=== PATIENT | male | born 1955 | race Two or more races ===

== ENCOUNTER → 2021-06-06 | Outpatient (CLI) | payer BC ==
[~2021-06-06] MED LIST: ? CHOLESTEROL MED; ASPI325 PO; ASPI81CH PO; CLOP75 PO; ERGO400 PO; HYDGUAL120 PO; HYDMOR2 PO; Humalog100 UNIT/1; LEVFLO500 PO; LISI20 PO; TOUJEO SOL300 UNIT/1; VYTORIN
[2021-06-08 15:18] LABS: CORONAVIRUS (COVID19) CSH-NRL Negative (Negative)
== END ==
LOC: LAB SHORT 12:18 → LAB 12:18
PROVIDERS: Physician Assistant
DX: Z20.822 Contact with and (suspected) exposure to COVID-19 (principal)
CPT/HCPCS: U0003

== ENCOUNTER → 2023-09-01 | Outpatient (CLI) | payer BC ==
[2023-09-01 10:57] LABS: BASOPHILS ABSOLUTE AUTO 0.07 K/mm3 (0.00-0.23); BASOPHILS PERCENT AUTO 1 % (0-2); EOSINOPHILS ABSOLUTE AUTO 0.25 K/mm3 (0.00-0.68); EOSINOPHILS PERCENT AUTO 2 % (0-6); Hematocrit 49.3 % (37.0-53.0); IMMATURE GRAN ABSOLUTE AUTO 0.03 K/mm3 (0.00-0.10); IMMATURE GRAN PERCENT AUTO 0 % (0-1); LYMPHOCYTES ABSOLUTE AUTO 1.01 K/mm3 (0.84-5.20); LYMPHOCYTES PERCENT AUTO 10 % (21-46); MONOCYTES ABSOLUTE AUTO 1.03 K/mm3 (0.16-1.47); MONOCYTES PERCENT AUTO 10 % (4-13); Mean Corpuscular HGB 29.7 pg (26.0-34.0); Mean Corpuscular HGB Conc 32.5 g/dL (31.5-36.5); Mean Corpuscular Volume 92 fL (80-100); Mean Platelet Volume 9.2 fL (9.1-12.4); NEUTROPHILS ABSOLUTE AUTO 7.89 K/mm3 (1.96-9.15); NEUTROPHILS PERCENT AUTO 77 % (41-73); Platelet Count 365 K/mm3 (150-400); RDW Coefficient Variation 12.2 % (11.7-14.2); RDW Standard Deviation 40.1 fL (35.1-46.3); Red Blood Cell Count 5.38 M/mm3 (4.30-5.90); White Blood Cell Count 10.28 K/mm3 (4.00-11.30)
[2023-09-01 11:16] LABS: Albumin/Globulin Ratio 0.7 (0.8-1.8); Bilirubin, Total 0.6 mg/dL (0.1-1.0); Bun/Creatinine Ratio 16.5 (12.0-20.0); Creatinine, Blood 1.27 mg/dL (0.60-1.20); Globulin, Blood 4.2 g/dL (2.2-4.0); Potassium, Blood 4.2 mmol/L (3.5-5.5); Total Protein, Blood 7.2 g/dL (6.4-8.2)
== END | disposition home or self-care (01) ==
LOC: LAB 10:53 → LAB SHORT 10:53
PROVIDERS: Physician Assistant
DX: R11.2 Nausea with vomiting, unspecified (principal)
CPT/HCPCS: 80053; 85025

== ENCOUNTER 2024-04-12 09:42 | Emergency (ER) | payer BC ==
[~2024-04-12] VITALS: Ht 180.3 cm; Wt 88.9 kg
[~2024-04-12 09:42] MED LIST changes: +INSULIN LI100 UNIT/6 SC; +LISI5 PO; -TOUJEO SOL300 UNIT/1; +TOUJEO SOL300 UNIT/2 SC
[2024-04-12 10:22] VITALS: BP 169/102
[2024-04-12] MEDS ORDERED: Gabapentin 300 MG Cap PO ONE (10:45)
[2024-04-12] MEDS ORDERED: Ketorolac Tromethamine 15mg Vial IM ONE (10:45)
[2024-04-12] MEDS ORDERED: Acetaminophen 500 MG Tab PO ONE (10:45)
[2024-04-12] MEDS ORDERED: IBUP600 PO (10:55)
[2024-04-12] MEDS ORDERED: GABA300 PO (10:55)
[2024-04-12] MEDS ORDERED: ACET500 PO (10:55)
== END 2024-04-12 11:05 | disposition home or self-care (01) ==
LOC: ER 09:42
DX: M54.12 Radiculopathy, cervical region (principal); E11.9 Type 2 diabetes mellitus without complications; I10 Essential (primary) hypertension; Z79.82 Long term (current) use of aspirin; Z79.4 Long term (current) use of insulin
CPT/HCPCS: A9270; J1885

== ENCOUNTER 2024-08-26 08:30 | Observation (INO) | payer BC, MEDICARE ==
[~2024-08-26] VITALS: Ht 177.8 cm; Wt 79.4 kg
[2024-08-26] VITALS (41 sets, daily range): BP systolic 116–180; BP diastolic 70–112
[~2024-08-26 08:30] MED LIST changes: +ACET500 PO; +GABA300 PO; +IBUP600 PO
[2024-08-26] MEDS ORDERED: Clopidogrel Bisulfate 300 MG Cap PO ONE (08:45)
[2024-08-26] MEDS ORDERED: Aspirin 325 MG Tab PO ONE (08:50)
[2024-08-26] MEDS ORDERED: Morphine Sulfate 4 MG/1 ML Injection IV ONE (08:55)
[2024-08-26] MEDS ORDERED: Nitroglycerin/D5W 250 ML IV ONE (08:55)
[2024-08-26] MEDS ORDERED: Heparin Sodium 1000 Units/ML 10ML MDV ONE ×2 (08:56→09:09)
[2024-08-26] MEDS ORDERED: Verapamil HCL 2.5 MG/ML 2ML Injection ONE (08:56)
[2024-08-26] MEDS ORDERED: NS 250 ML IV ONE (08:56)
[2024-08-26] MEDS ORDERED: NS 1,000 ML IV ONE ×3 (08:57→11:10)
[2024-08-26] MEDS ORDERED: Nitroglycerin 2 MG/20 ML BTL ONE (08:57)
[2024-08-26 09:08] LABS: BASOPHILS ABSOLUTE AUTO 0.09 K/mm3 (0.00-0.23); BASOPHILS PERCENT AUTO 1 % (0-2); EOSINOPHILS ABSOLUTE AUTO 0.25 K/mm3 (0.00-0.68); EOSINOPHILS PERCENT AUTO 2 % (0-6); Hematocrit 49.5 % (37.0-53.0); Hemoglobin 17.1 g/dL (13.5-17.5); IMMATURE GRAN ABSOLUTE AUTO 0.07 K/mm3 (0.00-0.10); IMMATURE GRAN PERCENT AUTO 1 % (0-1); LYMPHOCYTES PERCENT AUTO 24 % (21-46); MONOCYTES ABSOLUTE AUTO 1.11 K/mm3 (0.16-1.47); MONOCYTES PERCENT AUTO 9 % (4-13); Mean Corpuscular HGB 31.1 pg (26.0-34.0); Mean Corpuscular HGB Conc 34.5 g/dL (31.5-36.5); Mean Corpuscular Volume 90 fL (80-100); Mean Platelet Volume 9.2 fL (9.1-12.4); NEUTROPHILS ABSOLUTE AUTO 8.39 K/mm3 (1.96-9.15); NEUTROPHILS PERCENT AUTO 64 % (41-73); Platelet Count 381 K/mm3 (150-400); RDW Coefficient Variation 11.8 % (11.7-14.2); RDW Standard Deviation 38.8 fL (35.1-46.3); White Blood Cell Count 13.11 K/mm3 (4.00-11.30)
[2024-08-26] MEDS ORDERED: Midazolam HCl 1MG / ML 2ML Vial ONE (09:08)
[2024-08-26] MEDS ORDERED: FentaNYL Citrate 50 MCG/ML 2 ML Injection ONE ×2 (09:09→10:14)
[2024-08-26 09:29] LABS: Alanine Aminotransfer (ALT/SGP 46 U/L (12-78); Albumin, Blood 3.6 g/dL (3.4-5.0); Alk Phos 82 U/L (50-136); Anion Gap 16 mmol/L (3-11); Aspartate Aminotrans (AST/SGOT 34 U/L (12-37); Bilirubin, Total 0.6 mg/dL (0.1-1.0); Blood Urea Nitrogen 33 mg/dL (8-24); Bun/Creatinine Ratio 30.8 (12.0-20.0); CHOL/HDL RATIO 3.3; CO2, Blood 24 mmol/L (21-32); Calcium, Blood 9.4 mg/dL (8.5-10.1); Chloride, Blood 103 mmol/L (98-108); Cholesterol 193 mg/dL (50-200); Creatinine, Blood 1.07 mg/dL (0.60-1.20); Globulin, Blood 3.5 g/dL (2.2-4.0); Glomerular Filtration Rate 76 (60-); Glucose, Blood 187 mg/dL (70-99); HDL Cholesterol 59 mg/dL (>39); LDL/HDL RATIO 1.9; Low Density Lipoprotein Chol 111 mg/dL (0-110); Magnesium, Blood 2.1 mg/dL (1.6-2.4); Potassium, Blood 4.4 mmol/L (3.5-5.5); Sodium, Blood 139 mmol/L (136-145); Total Protein, Blood 7.1 g/dL (6.4-8.2); Triglycerides 117 mg/dL (30-160); Very Low Density Lipoprot Chol 23 mg/dL (6-32)
[2024-08-26] MEDS ORDERED: FLU VACC TS2024-25(6MOS UP)/PF 45 MCG/0.5 ML SYRINGE IM SCH (09:30)
[2024-08-26] MEDS ORDERED: Tirofiban HCL Monohydrate 3.75 MG/15 ML Vial ONE (09:30)
[2024-08-26] MEDS ORDERED: Tirofiban HCL M-Hyd/NS 250 ML IV ONE (09:31)
[2024-08-26 09:50] LABS: Anti-Xa UFH, PHA Monitoring <0.10 IU/mL; International Normalized Ratio 0.93
--- NOTE | 2024-08-26 10:31 | NUR ---
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 Addressed immediate family. Family displayed evidence of stress in the form of tears. Offered compassionate listening. Family requested prayer. Prayed with family. Family thanked me for visit and expressed relief following prayer.
--- NOTE | 2024-08-26 10:37 | NUR ---
Was called to Wafer Abrading Machine Tender waiting room. Family have gathered for a pt. who had a heart attack and was having emergency surgery. Spouse displays evidence of tears, and verbalized that another lacquer shader had visited. Facilitated life review. Since other family were now present this lacquer shader gathered them together and prayed for the family and Pt. Spouse verbalized gratitude for the praywer and spiritual care visit. Will reamin available to the Pt. and family.
--- NOTE | 2024-08-26 10:42 | NUR ---
ARRIVAL TO ICU 11 PT BROUGHT TO ICU 11 AT THIS TIME. R TR BAND SITE WNL. SINUS ON MONITOR WITH RATE IN 70S, BP STABLE. PT C/O L ARM PAIN RELATED TO RECENT NECK SURGERY. HE DENIES ANY CP OR SOB AT THIS TIME. PT ANSWERS ADMISSION QUESTIONS. AT BEDSIDE.
[2024-08-26] MEDS ORDERED: Tirofiban HCL M-Hyd/NS 250 ML IV SCH (11:00)
[2024-08-26] MEDS ORDERED: TraMADol HCl 50 MG Tab PO PRN (11:55)
[2024-08-26] MEDS ORDERED: Acetaminophen 325 MG TABLET PO PRN (11:55)
[2024-08-26] MEDS ORDERED: FentaNYL Citrate 50 MCG/ML 2 ML Injection IV ONE (13:40)
[2024-08-26] MEDS ORDERED: HYDROcodone 5-APAP 325 TAB PO PRN (13:45)
[2024-08-26] MEDS ORDERED: Nitroglycerin 0.4 MG SUBL SL ONE (15:43)
[2024-08-26] MEDS ORDERED: Aspirin 81 MG Chew PO ONE (15:43)
[2024-08-26] MEDS ORDERED: Heparin Sodium,Porcine 5,000 UNIT/0.5 ML SDV SC ONE (15:43)
[2024-08-26] MEDS ORDERED: DULoxetine HCL 20 MG Cap DR PO SCH (16:00)
[2024-08-26] MEDS ORDERED: Insulin Human Lispro 100 Units/ML 3ML Syringe SC SCH (16:30)
[2024-08-26] MEDS ORDERED: Carvedilol 6.25 MG Tab PO SCH (17:00)
--- NOTE | 2024-08-26 17:54 | NUR ---
1570-CALL TO FOR CLARIFICATION REGARDING MEDICATION ADMINISTRATION. WAS NOT WANTING PT TO TAKE THE CYMBALTA, ASKED IF THE PATIENT COULD TAKE THE PREDNISONE THAT HE HAD BEEN TAKING, SAID YES. PT INFORMED OF WHAT HAD SAID, REASONS FOR MEDICATION BEING THE NEUROPATHY OF THE SHOULDER, CONTINUED TO STATE THE PATIENT DOES NOT HAVE NEUROPATHY. PT STATES I HAVE THAT NERVE PAIN IN MY SHOULDER, ATTEMPT TO EDUCATE THE REGARDING THE DEFINITION OF NERVE PAIN AND INDICATION FOR MEDICATION. PT STATED HE WAS HAPPY TO TAKE THE MEDS BUT WANTED TO WAIT TO TAKE HIS PREDNISONE UNTIL TOMORROW.
--- NOTE | 2024-08-26 18:33 | NUR ---
Pt. is awake and eating dinner when he welcomes my visit. Spouse is at bedside and also welcomed my visit. Facilitated an update with the goal of establishing rapport with the Pt. Considered matters of his health history and normalized the Pt. experience.Rapport is established and the Pt. welcomed this brokerage branch manager to return.
[2024-08-26] MEDS ORDERED: Insulin Human Lispro 100 Units/ML 3ML Syringe SC ONE ×2 (18:45→20:15)
--- NOTE | 2024-08-26 18:51 | NUR ---
SHIFT SUMMARY TR BAND REMOVED AT 1600. TEGADERM AND ARMBOARD IN PLACE. PT CONTINUES TO DENY CP. SINUS ON MONITOR WITH RATE IN 80S. BP STABLE WITH SBP 120S-140S. PT CONTINUES TO HAVE L SHOULDER/ARM PAIN THAT IS RELATED TO RECENT NECK SURGERY. MEDICATED PER EMAR. PT C/O FEELING INCREASED WORK OF BREATHING. RR 17-24, SPO2 >93%. PLACED ON 2L NC FOR COMFORT. PT TOLERATED DINNER AND FLUIDS WELL. PT ABLE TO VOID APPROX 1000ML. BED IN LOW POSITION, CALL LIGHT WITHIN REACH. AT BEDSIDE. PT EXPRESSED FEELING HYPERGLYCEMIC AND CHECKED PERSONAL DEXCOM WITH VALUE >380. CHECKED GLUCOSE WITH HOSPITAL GLUCOMETER WITH RESULT 368. PT'S STS THEY WANT TO USE THEIR OWN INSULIN AND THAT HE NORMALLY USES CARB COUNT FOR INSULIN DOSING. HOSPITALIST NOTIFIED, ORDER RECIEVED FOR 4UNITS HUMALOG NOW, RECHECK GLUCOSE IN 1 HR, IF >250, ADMINISTER ADDITIONAL 4UNITS HUMALOG. PT AGREEABLE TO PLAN.
[2024-08-26] MEDS ORDERED: Insulin Glargine-Yfgn 100 Unit/mL 3 ML SYR SC SCH (21:00)
--- NOTE | 2024-08-26 22:00 | NUR ---
ASSUMED CARE AT 1900 PT LAYING IN BED WITH AT BEDSIDE. HE IS A/O X4 AND ABLE TO MAKE HIS NEEDS KNOWN. SPO2 >95% ON 2L NC; NO C/O SOB. AFEBRILE. NSR NOTED WITH RATE 80'S. SBP 140'S. RT RADIAL SITE FROM PREVIOUS TR BAND SHOWS NO SIGNS OF BLEEDING OR HEMATOMA; PT COMPLIENT WITH LIMITING MOBILITY TO RT HAND; DRESSING C/D/I. HE IS ABLE TO AMBULATE TO BATHROOM WITH MINIMAL ASSISTANCE, MOSTLY FOR LINE MANAGMENT; PT ASSISTING AT TIMES. SALINE LOCKED. SEE SHIFT ASSESSMENT FOR FULL ASSESSMENT.
[2024-08-27] VITALS (14 sets, daily range): BP systolic 126–154; BP diastolic 79–101
[2024-08-27] MEDS ORDERED: Aspirin 81 MG Chew PO SCH (06:00)
--- NOTE | 2024-08-27 06:37 | NUR ---
END OF SHIFT SUMMARY NO ACUTE EVENTS OVERNIGHT. PT WAS ABLE TO SLEEP FOR PART OF THE NIGHT. HE CONT TO BE A/O X4 AND ABLE TO MAKE HIS NEEDS KNOWN. SPO2 >94% ON 2L NC. AFEBRILE. HR 60-80'S, NSR; AM EKG COMPLETED; NO C/O DYSPNEA OR CHEST PAIN. SBP 120-140'S. TOLERATING PO INTAKE WELL. AMBULATED TO TOILET SUCCESSFULLY WITH MINIMAL ASSISTANCE. SALINE LOCKED. RT RADIAL SITE SHOWS NO SIGNS OF BLEEDING OR HEMATOMA. WILL REPORT TO AM RN WHEN AVIALABLE.
[2024-08-27 06:47] LABS: BASOPHILS ABSOLUTE AUTO 0.11 K/mm3 (0.00-0.23); BASOPHILS PERCENT AUTO 1 % (0-2); EOSINOPHILS ABSOLUTE AUTO 0.34 K/mm3 (0.00-0.68); EOSINOPHILS PERCENT AUTO 4 % (0-6); Hematocrit 49.1 % (37.0-53.0); Hemoglobin 16.4 g/dL (13.5-17.5); IMMATURE GRAN ABSOLUTE AUTO 0.05 K/mm3 (0.00-0.10); IMMATURE GRAN PERCENT AUTO 1 % (0-1); LYMPHOCYTES PERCENT AUTO 22 % (21-46); MONOCYTES ABSOLUTE AUTO 0.76 K/mm3 (0.16-1.47); MONOCYTES PERCENT AUTO 8 % (4-13); Mean Corpuscular HGB 30.9 pg (26.0-34.0); Mean Corpuscular HGB Conc 33.4 g/dL (31.5-36.5); Mean Corpuscular Volume 93 fL (80-100); Mean Platelet Volume 9.1 fL (9.1-12.4); NEUTROPHILS ABSOLUTE AUTO 6.02 K/mm3 (1.96-9.15); NEUTROPHILS PERCENT AUTO 64 % (41-73); Platelet Count 345 K/mm3 (150-400); RDW Standard Deviation 41.2 fL (35.1-46.3); Red Blood Cell Count 5.31 M/mm3 (4.30-5.90); White Blood Cell Count 9.38 K/mm3 (4.00-11.30)
[2024-08-27] MEDS ORDERED: Ticagrelor 90 MG TABLET PO ONE (07:00)
[2024-08-27] MEDS ORDERED: Ticagrelor 90 MG TABLET PO SCH ×2 (07:00→19:00)
[2024-08-27 07:09] LABS: Alanine Aminotransfer (ALT/SGP 48 U/L (12-78); Albumin, Blood 3.4 g/dL (3.4-5.0); Albumin/Globulin Ratio 1.1 (0.8-1.8); Alk Phos 71 U/L (50-136); Anion Gap 12 mmol/L (3-11); Aspartate Aminotrans (AST/SGOT 76 U/L (12-37); Bilirubin, Total 0.6 mg/dL (0.1-1.0); Blood Urea Nitrogen 27 mg/dL (8-24); Bun/Creatinine Ratio 28.6 (12.0-20.0); CHOL/HDL RATIO 3.5; CO2, Blood 25 mmol/L (21-32); Calcium, Blood 8.6 mg/dL (8.5-10.1); Chloride, Blood 108 mmol/L (98-108); Cholesterol 175 mg/dL (50-200); Creatinine, Blood 0.94 mg/dL (0.60-1.20); Glomerular Filtration Rate 89 (60-); Glucose, Blood 245 mg/dL (70-99); HDL Cholesterol 50 mg/dL (>39); LDL/HDL RATIO 1.8; Low Density Lipoprotein Chol 90 mg/dL (0-110); Potassium, Blood 4.6 mmol/L (3.5-5.5); Sodium, Blood 140 mmol/L (136-145); Total Protein, Blood 6.4 g/dL (6.4-8.2); Triglycerides 176 mg/dL (30-160); Very Low Density Lipoprot Chol 35 mg/dL (6-32)
[2024-08-27] MEDS ORDERED: Ondansetron 4 MG SoluTab MM PRN (07:10)
[2024-08-27] MEDS ORDERED: Insulin Human Lispro 100 Units/ML 3ML Syringe SC SCH (08:30)
[2024-08-27] MEDS ORDERED: Enoxaparin 40 MG/0.4 ML SYR SC SCH (09:00)
[2024-08-27] MEDS ORDERED: Losartan Potassium 50 MG Tab PO SCH (09:00)
[2024-08-27] MEDS ORDERED: Atorvastatin 40 MG Tab PO SCH (09:00)
[2024-08-27] MEDS ORDERED: Atorvastatin 10 MG Tab PO SCH (09:00)
[2024-08-27] MEDS ORDERED: HUMALOG KW100 UNIT/1 SC (12:21)
[2024-08-27] MEDS ORDERED: ATOR10 PO (12:23)
[2024-08-27] MEDS ORDERED: Aspir 8181 MG PO (12:23)
[2024-08-27] MEDS ORDERED: Cymbalta20 MG PO (12:24)
[2024-08-27] MEDS ORDERED: CARV6.25 PO (12:24)
[2024-08-27] MEDS ORDERED: LOSA25 PO (12:31)
[2024-08-27] MEDS ORDERED: TICA90TA PO (12:32)
--- NOTE | 2024-08-27 13:11 | NUR ---
DISCHARGE PT VERBALIZED UNDERSTANDING OF ALL DISCHARGE INSTUCTIONS, MEDS, AND FOLLOW UP APPOINTMENTS. IV'S REMOVED. PT DRESSED SELF. PT TAKEN OUT TO VEHICLE BY WHEELCHAIR WITH PCT AND PT SPOUSE. ALL PT BELONGINGS SENT WITH PT.
== END 2024-08-27 15:43 | disposition home or self-care (01) ==
LOC: ER 08:30 → ICUE 08:31 → ER 09:05 → ICUE 09:05
PROVIDERS: Student in an Organized Health Care Education/Training Program; ADMIT Hospitalist
DX: I21.19 ST elevation (STEMI) myocardial infarction involving other coronary artery of inferior wall (principal); I25.10 Atherosclerotic heart disease of native coronary artery without angina pectoris; E10.9 Type 1 diabetes mellitus without complications; I11.0 Hypertensive heart disease with heart failure; I50.32 Chronic diastolic (congestive) heart failure; E78.5 Hyperlipidemia, unspecified; Z79.82 Long term (current) use of aspirin; Z79.899 Other long term (current) drug therapy; Z87.891 Personal history of nicotine dependence; Z95.5 Presence of coronary angioplasty implant and graft
CPT/HCPCS: 36415; 76937; 80053; 80061; 82947; 83036; 83735; 84484; 85025; 85347; 85520; 85610; 85730; 86850; 86900; 86901; 92973; 92978; 93005; 93010; 93458; 93571; 99152; 99153; 99285-25; A9270; C1725; C1753; C1769; C1874; C1887; C1894; C8929; C9606; J1644; J1650; J1815; J2250; J2270; J3010; J3246; J7030; J7050; Q9957; Q9967

== ENCOUNTER 2025-07-05 15:07 | Emergency (ER) | payer BC ==
[~2025-07-05] VITALS: Ht 180.3 cm; Wt 93.9 kg
[~2025-07-05 15:07] MED LIST changes: +ATOR10 PO; +Aspir 8181 MG PO; +CARV6.25 PO; +Cymbalta20 MG PO; +HUMALOG KW100 UNIT/1 SC; +LOSA25 PO; +TICA90TA PO
[2025-07-05 15:34] LABS: BASOPHILS ABSOLUTE AUTO 0.14 K/mm3 (0.00-0.23); BASOPHILS PERCENT AUTO 2 % (0-2); EOSINOPHILS ABSOLUTE AUTO 0.36 K/mm3 (0.00-0.68); EOSINOPHILS PERCENT AUTO 5 % (0-6); Hematocrit 41.9 % (37.0-53.0); Hemoglobin 14.2 g/dL (13.5-17.5); IMMATURE GRAN ABSOLUTE AUTO 0.01 K/mm3 (0.00-0.10); IMMATURE GRAN PERCENT AUTO 0 % (0-1); LYMPHOCYTES ABSOLUTE AUTO 2.14 K/mm3 (0.84-5.20); LYMPHOCYTES PERCENT AUTO 29 % (21-46); MONOCYTES ABSOLUTE AUTO 0.79 K/mm3 (0.16-1.47); MONOCYTES PERCENT AUTO 11 % (4-13); Mean Corpuscular HGB Conc 33.9 g/dL (31.5-36.5); Mean Corpuscular Volume 89 fL (80-100); NEUTROPHILS ABSOLUTE AUTO 4.08 K/mm3 (1.96-9.15); NEUTROPHILS PERCENT AUTO 54 % (41-73); NRBC ABSOLUTE 0.00 K/mm3 (0.00-0.02); NRBC Auto 0.0 /100 WBC (0.0-0.2); Platelet Count 285 K/mm3 (150-400); RDW Coefficient Variation 11.9 % (11.7-14.2); RDW Standard Deviation 38.8 fL (35.1-46.3)
[2025-07-05 16:01] LABS: Alanine Aminotransfer (ALT/SGP 51.0 U/L (12-78); Albumin, Blood 3.5 g/dL (3.4-5.0); Albumin/Globulin Ratio 1.1 (0.8-1.8); Anion Gap 9.0 mmol/L (3-11); Aspartate Aminotrans (AST/SGOT 37.0 U/L (12-37); Bilirubin, Total 0.3 mg/dL (0.1-1.0); Blood Urea Nitrogen 21.0 mg/dL (8-24); CO2, Blood 26.0 mmol/L (21-32); Calcium, Blood 8.9 mg/dL (8.5-10.1); Chloride, Blood 109.0 mmol/L (98-108); Creatinine, Blood 1.42 mg/dL (0.60-1.20); Globulin, Blood 3.1 g/dL (2.2-4.0); Glucose, Blood 220.0 mg/dL (70-99); Potassium, Blood 4.2 mmol/L (3.5-5.5); Sodium, Blood 140.0 mmol/L (136-145); Total Protein, Blood 6.6 g/dL (6.4-8.2)
[2025-07-05] MEDS ORDERED: FentaNYL Citrate 50 MCG/ML 2 ML Injection IV ONE (16:40)
[2025-07-05] MEDS ORDERED: NS 1,000 ML IV SCH (16:40)
[2025-07-05] MEDS ORDERED: Pantoprazole Sodium 40 MG Injection IV ONE (16:45)
[2025-07-05] MEDS ORDERED: PANT40 PO (21:00)
[2025-07-05 21:30] VITALS: BP 146/78
== END 2025-07-05 21:33 | disposition home or self-care (01) ==
LOC: ER 15:07
PROVIDERS: Student in an Organized Health Care Education/Training Program
DX: R07.9 Chest pain, unspecified (principal); N17.9 Acute kidney failure, unspecified; E04.1 Nontoxic single thyroid nodule; M54.50 Low back pain, unspecified; E10.9 Type 1 diabetes mellitus without complications; I10 Essential (primary) hypertension; E78.5 Hyperlipidemia, unspecified; Z87.891 Personal history of nicotine dependence; Z79.01 Long term (current) use of anticoagulants
CPT/HCPCS: 71046; 71275; 74177; 80053; 83690; 83880; 84484; 85025; 85379; 93005; 93010; 96361; 96374-59; 96375-59; 99285-25; A9270; J2470; J3010; J7030; Q9967